=== PATIENT | male | born 1960 | race Caucasian/White ===

== ENCOUNTER 2024-06-26 11:19 | Emergency (ER) | payer BC ==
[~2024-06-26] VITALS: Ht 188 cm; Wt 118.7 kg
[2024-06-26] MEDS ORDERED: CEPH-585 PO (12:46)
[2024-06-26] MEDS: TETanus/Pertussis (Acell)/Diphther VAC/PF (Tdap-Adult) 0.5ml syringe IMVAC ONE (13:16)
[2024-06-26 13:18] VITALS: BP 134/80; PULSE 90; RESP 18; TEMP 98.8; O2SAT 98
== END 2024-06-26 13:21 | disposition home or self-care (01) ==
LOC: ER 11:20
DX: S90.822A Blister (nonthermal), left foot, initial encounter (principal); Z23 Encounter for immunization; X58.XXXA Exposure to other specified factors, initial encounter; Y93.89 Activity, other specified; Y92.89 Other specified places as the place of occurrence of the external cause; Y99.8 Other external cause status
CPT/HCPCS: 73630; 90471; 90715; 99283